=== PATIENT | female | born 1980 | race Caucasian/White ===

== ENCOUNTER → 2016-05-05 | Outpatient (CLI) | payer OTHER ==
--- NOTE | 2016-05-05 13:43 | DX ---
Bilateral Hips, 3 views History: Psoriatic arthritis. Findings: The femoral heads are well rounded and normally located. There are small corticated erosion s involving the lateral aspect of each acetabulum. No other erosions are identified. The SI joints ar e normal. Hypertrophic change of each iliac crest is noted. 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 Impression: Healed erosions of each lateral acetabulum.
== END ==
LOC: BRMIMAGING 08:32
PROVIDERS: ATTEND Internal Medicine
DX: L40.50 Arthropathic psoriasis, unspecified (principal)
CPT/HCPCS: 73521-PO